=== PATIENT | male | born 1940 | race Caucasian/White ===

== ENCOUNTER → 2017-02-04 | Outpatient (CLI) | payer MEDICARE, OTHER | END | disposition short-term general hospital (02) | LOC: CLNEUR 13:17 | DX: M54.16 Radiculopathy, lumbar region (principal); M51.9 Unspecified thoracic, thoracolumbar and lumbosacral intervertebral disc disorder; M41.9 Scoliosis, unspecified; D46.A Refractory cytopenia with multilineage dysplasia; Z98.890 Other specified postprocedural states ==